=== PATIENT | female | born 1970 | race American Indian/Alaskan Native ===

== ENCOUNTER 2019-02-09 06:02 | Emergency (ER) | payer SELFPAY ==
[2019-02-09 07:00] LABS: Basophils # (Auto) 0.2 K/mm3 (0.0-0.1); Basophils % (Auto) 1.5 % (0.0-1.8); Eosinophils # (Auto) 0.2 K/mm3 (0.0-0.4); Eosinophils % (Auto) 1.4 % (0.0-4.3); Hematocrit 38.8 % (30.3-42.9); Hemoglobin 12.9 gm/dl (10.1-14.3); Lymphocytes # (Auto) 3.7 K/mm3 (1.2-5.4); Lymphocytes % (Auto) 30.1 % (13.4-35.0); Mean Corpuscular HGB Conc 33 % (30-34); Mean Corpuscular Volume 83 fl (79-97); Monocytes # (Auto) 1.1 K/mm3 (0.0-0.8); Monocytes % (Auto) 8.9 % (0.0-7.3); Platelet Count 377 K/mm3 (140-440); Red Blood Count 4.66 M/mm3 (3.65-5.03); Red Cell Distribution Width 14.3 % (13.2-15.2)
[2019-02-09 07:14] LABS: Alanine Aminotransferase 11 units/L (7-56); Albumin 4.1 g/dL (3.9-5); BUN/Creatinine Ratio 20; Blood Urea Nitrogen 12 mg/dL (7-17); Calcium 8.8 mg/dL (8.4-10.2); Hemolysis Index 28
[2019-02-09 07:33] LABS: Bilirubin,Urine NEG (Negative); Blood,Urine NEG (Negative); Color,Urine Yellow (Yellow); Mucus,Urine 2+ /HPF; Protein,Urine <15 mg/dL mg/dL (Negative); Urobilinogen,Urine < 2.0 mg/dL (<2.0)
--- NOTE | 2019-02-09 07:55 | Emergency Department Report ---
ED Female HPI - General Chief complaint: Abdominal Pain Stated complaint: PELVIC PAIN Time Seen by Provider: 02/09/19 07:54 Source: patient Mode of arrival: Ambulatory Limitations: No Limitations - History of Present Illness Initial comments: Patient reports abdominal and pelvic pain with vaginal discharge that started two days ago. MD Complaint: vaginal discharge, pelvic pain, possible STD Onset/Timin -: days(s) Location: suprapubic, RLQ Radiation: non-radiating Severity: severe Severity scale (0 -10): 7 Quality: cramping Consistency: constant Improves with: none Worsens with: none Are you Now?: No Associated Symptoms: vaginal discharge, abdominal pain. denies: vaginal bleeding, nausea/vomiting, fever/chills, headaches, loss of appetite, dysuria, hematuria, rash, seizure, shortness of breath, syncope, weakness - Related Data Sexually active: Yes Previous Rx's Medication Instructions Recorded Last Taken Type Azithromycin [Zithromax Z-TEODORO] 250 mg PO DAILY #1 pkg 01/29/15 Unknown Rx HYDROcodone/APAP 5-325 [[place] 1 each PO Q6HR PRN #20 tablet 01/29/15 Unknown Rx 5/325] Prednisone [predniSONE 10 mg 10 mg PO .TAPER #1 tab.ds.pk 01/29/15 Unknown Rx (6-Day Pack, 21 Tabs)] HYDROcodone/APAP 5-325 [[place] 1 each PO Q6HR #20 tablet 03/26/15 Unknown Rx 5/325] Ibuprofen [Motrin 600 MG tab] 600 mg PO Q8H PRN #30 tablet 03/26/15 Unknown Rx Nitrofurantoin [place]/M-Cryst 100 mg PO Q12HR #14 capsule 03/26/15 Unknown Rx [Macrobid CAP] Amoxicillin [Amoxicillin TAB] 875 mg PO BID #14 tablet 01/31/19 Unknown Rx Naproxen [Naprosyn] 500 mg PO BID #14 tablet 01/31/19 Unknown Rx metroNIDAZOLE [Flagyl] 500 mg PO Q12HR #14 tab 02/09/19 Unknown Rx Allergies Allergy/AdvReac Type Severity Reaction Status Date / Time codeine Allergy Rash Verified 01/29/15 04:57 ED Review of Systems ROS: Stated complaint: PELVIC PAIN Other details as noted in HPI Constitutional: denies: chills, fever Eyes: denies: eye pain, eye discharge, vision change ENT: denies: ear pain, throat pain Respiratory: denies: cough, shortness of breath, wheezing Cardiovascular: denies: chest pain, palpitations Endocrine: no symptoms reported Gastrointestinal: abdominal pain. denies: nausea, diarrhea Genitourinary: discharge (vaginal). denies: urgency, dysuria, frequency, hematuria Musculoskeletal: denies: back pain, joint swelling, arthralgia Skin: denies: rash, lesions Neurological: denies: headache, weakness, paresthesias Psychiatric: denies: anxiety, depression Hematological/Lymphatic: denies: easy bleeding, easy bruising ED Past Medical Hx - Past Medical History Previous Medical History?: Yes Additional medical history: sarcoidosis - Surgical History Past Surgical History?: Yes Hx Cholecystectomy: Yes Additional Surgical History: tubal ligation-1989. mylolecomty - Social History Smoking Status: Never Smoker Substance Use Type: None - Medications Home Medications: Home Medications Medication Instructions Recorded Confirmed Last Taken Type Azithromycin [Zithromax Z-TEODORO] 250 mg PO DAILY #1 pkg 01/29/15 Unknown Rx HYDROcodone/APAP 5-325 [[place] 1 each PO Q6HR PRN #20 tablet 01/29/15 Unknown Rx 5/325] Prednisone [predniSONE 10 mg 10 mg PO .TAPER #1 tab.ds.pk 01/29/15 Unknown Rx (6-Day Pack, 21 Tabs)] HYDROcodone/APAP 5-325 [[place] 1 each PO Q6HR #20 tablet 03/26/15 Unknown Rx 5/325] Ibuprofen [Motrin 600 MG tab] 600 mg PO Q8H PRN #30 tablet 03/26/15 Unknown Rx Nitrofurantoin [place]/M-Cryst 100 mg PO Q12HR #14 capsule 03/26/15 Unknown Rx [Macrobid CAP] Amoxicillin [Amoxicillin TAB] 875 mg PO BID #14 tablet 01/31/19 Unknown Rx Naproxen [Naprosyn] 500 mg PO BID #14 tablet 01/31/19 Unknown Rx metroNIDAZOLE [Flagyl] 500 mg PO Q12HR #14 tab 02/09/19 Unknown Rx ED Physical Exam - General Limitations: No Limitations General appearance: alert, in no apparent distress - Respiratory Respiratory exam: Present: normal lung sounds bilaterally. Absent: respiratory distress, wheezes, rales, rhonchi, stridor, chest wall tenderness, accessory muscle use, decreased breath sounds, prolonged expiratory - Cardiovascular Cardiovascular Exam: Present: regular rate, normal rhythm, normal heart sounds. Absent: systolic murmur, diastolic murmur, rubs, gallop - GI/Abdominal GI/Abdominal exam: Present: soft, tenderness (suprapubic and RLQ), normal bowel sounds. Absent: guarding, rebound, rigid, diminished bowel sounds, hyperactive bowel sounds, hypoactive bowel sounds, organomegaly - Speculum exam: Present: vaginal discharge (moderate creamy), cervical discharge. Absent: vaginal bleeding, foreign body, tissue, laceration Bi-manual exam: Present: normal bi-manual exam. Absent: cervical motion tendernes, adnexal mass, uterine enlargement, uterine tenderness - Extremities Exam Extremities exam: Present: normal inspection, full ROM, normal capillary refill - Back Exam Back exam: Present: normal inspection, full ROM. Absent: tenderness, CVA tenderness (R), CVA tenderness (L), muscle spasm, paraspinal tenderness, vertebral tenderness - Neurological Exam Neurological exam: Present: alert, oriented X3, CN II-XII intact, normal gait, reflexes normal - Psychiatric Psychiatric exam: Present: normal affect, normal mood - Skin Skin exam: Present: warm, dry, intact, normal color. Absent: rash ED Course Vital Signs 02/09/19 09:40 Temperature 98.3 F Pulse Rate 66 Respiratory 16 Rate Blood Pressure 132/76 [Left] O2 Sat by Pulse 100 Oximetry ED Medical Decision Making - Lab Data Result diagrams: 02/09/19 06:34 02/09/19 06:34 Lab Results 02/09/19 02/09/19 02/09/19 Range/Units 06:34 06:34 06:34 WBC 12.4 H (4.5-11.0) K/mm3 RBC 4.66 (3.65-5.03) M/mm3 Hgb 12.9 (10.1-14.3) gm/dl Hct 38.8 (30.3-42.9) % MCV 83 (79-97) fl MCH 28 (28-32) pg MCHC 33 (30-34) % RDW 14.3 (13.2-15.2) % Plt Count 377 (140-440) K/mm3 Lymph % (Auto) 30.1 (13.4-35.0) % [place] % (Auto) 8.9 H (0.0-7.3) % Eos % (Auto) 1.4 (0.0-4.3) % Baso % (Auto) 1.5 (0.0-1.8) % Lymph # 3.7 (1.2-5.4) K/mm3 [place] # 1.1 H (0.0-0.8) K/mm3 Eos # 0.2 (0.0-0.4) K/mm3 Baso # 0.2 H (0.0-0.1) K/mm3 Seg Neutrophils % 58.1 (40.0-70.0) % Seg Neutrophils # 7.2 (1.8-7.7) K/mm3 Sodium 139 (137-145) mmol/L Potassium 4.1 (3.6-5.0) mmol/L Chloride 102.2 (98-107) mmol/L Carbon Dioxide 28 (22-30) mmol/L Anion Gap 13 mmol/L BUN 12 (7-17) mg/dL Creatinine 0.6 L (0.7-1.2) mg/dL Estimated GFR > 60 ml/min BUN/Creatinine Ratio 20 % Glucose 118 H (65-100) mg/dL Calcium 8.8 (8.4-10.2) mg/dL Total Bilirubin 0.20 (0.1-1.2) mg/dL AST 13 (5-40) units/L ALT 11 (7-56) units/L Alkaline Phosphatase 72 (35-129) units/L Total Protein 7.6 (6.3-8.2) g/dL Albumin 4.1 (3.9-5) g/dL Albumin/Globulin Ratio 1.2 % HCG, Qual Negative (Negative) Urine Color (Yellow) Urine Turbidity (Clear) Urine pH (5.0-7.0) Ur Specific [place] (1.003-1.030) Urine Protein (Negative) mg/dL Urine Glucose (UA) (Negative) mg/dL Urine Ketones (Negative) mg/dL Urine Blood (Negative) Urine Nitrite (Negative) Urine Bilirubin (Negative) Urine Urobilinogen (<2.0) mg/dL Ur Leukocyte Esterase (Negative) Urine WBC (Auto) (0.0-6.0) /HPF Urine RBC (Auto) (0.0-6.0) /HPF U Epithel Cells (Auto) (0-13.0) /HPF Urine Mucus /HPF 02/09/19 Range/Units 07:22 WBC (4.5-11.0) K/mm3 RBC (3.65-5.03) M/mm3 Hgb (10.1-14.3) gm/dl Hct (30.3-42.9) % MCV (79-97) fl MCH (28-32) pg MCHC (30-34) % RDW (13.2-15.2) % Plt Count (140-440) K/mm3 Lymph % (Auto) (13.4-35.0) % [place] % (Auto) (0.0-7.3) % Eos % (Auto) (0.0-4.3) % Baso % (Auto) (0.0-1.8) % Lymph # (1.2-5.4) K/mm3 [place] # (0.0-0.8) K/mm3 Eos # (0.0-0.4) K/mm3 Baso # (0.0-0.1) K/mm3 Seg Neutrophils % (40.0-70.0) % Seg Neutrophils # (1.8-7.7) K/mm3 Sodium (137-145) mmol/L Potassium (3.6-5.0) mmol/L Chloride (98-107) mmol/L Carbon Dioxide (22-30) mmol/L Anion Gap mmol/L BUN (7-17) mg/dL Creatinine (0.7-1.2) mg/dL Estimated GFR ml/min BUN/Creatinine Ratio % Glucose (65-100) mg/dL Calcium (8.4-10.2) mg/dL Total Bilirubin (0.1-1.2) mg/dL AST (5-40) units/L ALT (7-56) units/L Alkaline Phosphatase (35-129) units/L Total Protein (6.3-8.2) g/dL Albumin (3.9-5) g/dL Albumin/Globulin Ratio % HCG, Qual (Negative) Urine Color Yellow (Yellow) Urine Turbidity Clear (Clear) Urine pH 5.0 (5.0-7.0) Ur Specific [place] 1.019 (1.003-1.030) Urine Protein <15 mg/dl (Negative) mg/dL Urine Glucose (UA) Neg (Negative) mg/dL Urine Ketones Neg (Negative) mg/dL Urine Blood Neg (Negative) Urine Nitrite Neg (Negative) Urine Bilirubin Neg (Negative) Urine Urobilinogen < 2.0 (<2.0) mg/dL Ur Leukocyte Esterase Neg (Negative) Urine WBC (Auto) 1.0 (0.0-6.0) /HPF Urine RBC (Auto) 1.0 (0.0-6.0) /HPF U Epithel Cells (Auto) 9.0 (0-13.0) /HPF Urine Mucus 2+ /HPF Microbiology 02/09/19 08:18 Wet Prep - Final Cervix > 20% clue cells seen No Trichomoniasis Temp Pulse Resp BP Pulse Ox 98.3 F 66 16 132/76 100 02/09/19 09:40 02/09/19 09:40 02/09/19 09:40 02/09/19 09:40 02/09/19 09:40 Yeast seen - Radiology Data Radiology results: image reviewed TRANSABDOMINAL PELVIC AND TRANSVAGINAL ULTRASOUND HISTORY: Pelvic pain for 5 days, myomectomy 3 years ago. COMPARISON: None. TECHNIQUE: Routine transabdominal and transvaginal pelvic ultrasound performed. Color Doppler interrogation. FINDINGS: Uterus: Normal size and echogenicity without uterine mass. The uterus is anteverted and measures 6.6 x 3.0 x 3.8 cm. Endometrium: 3.2 mm. No discrete abnormality. Right Ovary: Normal size, blood flow and appearance measuring 2.3 x 1.3 x 1.7 cm. Left Ovary: Normal size, blood flow and appearance measuring 1.8 x 1.6 x 1.6 cm. Additional findings: The cervix is normal size and contour. Several tiny echogenic foci are identified in the endocervical canal consistent with gas. IMPRESSION 1. No significant abnormality. - Medical Decision Making During the course of ED, pelvic exam, laboratory and pelvic ultrasound were ordered. The ultrasound revealed no significant abnormality. Laboratory studies showed clue cells and yeast under microscopic exam. Patient was sent home with prescription for Flagyl, instructed not to drink alcoholic beverages during medication administration, as well as 72 hours after completion of medication. She verbalized understanding - Differential Diagnosis Pelvic Pain, UTI, Bacterial Vaginosis, Yeast Infection Critical care attestation.: If time is entered above; I have spent that time in minutes in the direct care of this critically ill patient, excluding procedure time. ED Disposition Clinical Impression: Bacterial vaginosis, Yeast infection, Pelvic pain Disposition: TO HOME OR SELFCARE Is pt being admited?: No Does the pt Need Aspirin: No Condition: Stable Instructions: Bacterial Vaginosis (ED), Abdominal Pain (ED) Additional Instructions: Take medication as directed. No drinking while taking medication, including 72 hours after completion of antibiotics. Follow up with the selective referral given at discharge. Return back to the ED for worsening symptoms Prescriptions: metroNIDAZOLE [Flagyl] 500 mg PO Q12HR #14 tab Referrals: PRIMARY CAREMD [Primary Care Provider] - 3-5 Days BETSY MALLOY MD [Staff Physician] - 3-5 Days ANAMARIA SHANNON MD [Staff Physician] - 3-5 Days Forms: Work/School Release Form(ED) Time of Disposition: 09:25
--- NOTE | 2019-02-09 09:09 | Ultrasound Report ---
TRANSABDOMINAL PELVIC AND TRANSVAGINAL ULTRASOUND HISTORY: Pelvic pain for 5 days, myomectomy 3 years ago. COMPARISON: None. TECHNIQUE: Routine transabdominal and transvaginal pelvic ultrasound performed. Color Doppler interro gation. FINDINGS: Uterus: Normal size and echogenicity without uterine mass. The uterus is anteverted and measures 6.6 x 3.0 x 3.8 cm. Endometrium: 3.2 mm. No discrete abnormality. Right Ovary: Normal size, blood flow and appearance measuring 2.3 x 1.3 x 1.7 cm. Left Ovary: Normal size, blood flow and appearance measuring 1.8 x 1.6 x 1.6 cm. Additional findings: The cervix is normal size and contour. Several tiny echogenic foci are identifie d in the endocervical canal consistent with gas. IMPRESSION 1. No significant abnormality. Signer Name: David Wang Jr, MD Signed: 02/09/2019 9:04 AM Workstation Name: [id number]
[2019-02-09 09:41] VITALS: BP 132/76
== END 2019-02-09 09:41 | disposition home or self-care (01) ==
LOC: ED 06:02
DX: B37.9 Candidiasis, unspecified (principal); N76.0 Acute vaginitis; Z98.51 Tubal ligation status; Z90.49 Acquired absence of other specified parts of digestive tract; Z88.5 Allergy status to narcotic agent
CPT/HCPCS: 36415; 76830; 76856; 80053; 81001; 84703; 85025; 87210; 87591

== ENCOUNTER 2019-02-13 14:04 | Emergency (ER) | payer SELFPAY ==
[2019-02-13 14:13] VITALS: BP 129/77
--- NOTE | 2019-02-13 15:17 | Event Note ---
ED Screening Note Date of service: 02/13/19 Time: 15:13 ED Screening Note: Reports bodyache, nausea, dizziness,loss of appetite, no urinary symptoms, some coughing. Reports sinus pain. tied OTC meds This initial assessment/diagnostic orders/clinical plan/treatment(s) is/are subject to change based on patients health status, clinical progression and re- assessment by fellow clinical providers in the ED. Further treatment and workup at subsequent clinical providers discretion. Patient/guardian urged not to elope from the ED as their condition may be serious if not clinically assessed and managed. Initial orders include:
--- NOTE | 2019-02-13 15:56 | XRay Report ---
CHEST 2 VIEWS INDICATION / CLINICAL INFORMATION: cough, fever 1 month. COMPARISON: None available. FINDINGS: SUPPORT DEVICES: None. HEART / MEDIASTINUM: No significant abnormality. LUNGS / PLEURA: There is diffuse interstitial disease bilaterally. I suspect this is mild chronic int erstitial lung disease, unfortunately, I have no prior chest radiographs to confirm this. No pneumoth orax. No finding to suggest the presence of bacterial pneumonia. ADDITIONAL FINDINGS: No significant additional findings. IMPRESSION: 1. Mild interstitial lung disease bilaterally. Presumably this is chronic. No other significant findi ng. Signer Name: Sarah Patel MD Signed: 02/13/2019 3:51 PM Workstation Name: [id number]
--- NOTE | 2019-02-13 15:59 | Emergency Department Report ---
ED General Adult HPI - General Chief complaint: Upper Respiratory Infection Stated complaint: FLU LIKE SYM/DIZZY/NAUSEA Time Seen by Provider: 02/13/19 14:25 Source: patient Mode of arrival: Ambulatory Limitations: No Limitations - History of Present Illness Initial comments: flu like sx x > 1 week dx w/ possible bronchitis by PCP some coughing, primary complaint is sinus pain and intermittent dizziness along with diffuse myalgias NO fever -: Gradual, week(s) (2) Location: face Radiation: non-radiation Severity scale (0 -10): 5 Quality: aching Consistency: constant Improves with: none Worsens with: none Associated Symptoms: cough, nausea/vomiting (x 1 now resolved). denies: fever/chills, rash, shortness of breath Treatments Prior to Arrival: none - Related Data Previous Rx's Medication Instructions Recorded Last Taken Type Azithromycin [Zithromax Z-TEODORO] 250 mg PO DAILY #1 pkg 01/29/15 Unknown Rx HYDROcodone/APAP 5-325 [[place] 1 each PO Q6HR PRN #20 tablet 01/29/15 Unknown Rx 5/325] Prednisone [predniSONE 10 mg 10 mg PO .TAPER #1 tab.ds.pk 01/29/15 Unknown Rx (6-Day Pack, 21 Tabs)] HYDROcodone/APAP 5-325 [[place] 1 each PO Q6HR #20 tablet 03/26/15 Unknown Rx 5/325] Ibuprofen [Motrin 600 MG tab] 600 mg PO Q8H PRN #30 tablet 03/26/15 Unknown Rx Nitrofurantoin [place]/M-Cryst 100 mg PO Q12HR #14 capsule 03/26/15 Unknown Rx [Macrobid CAP] Amoxicillin [Amoxicillin TAB] 875 mg PO BID #14 tablet 01/31/19 Unknown Rx Naproxen [Naprosyn] 500 mg PO BID #14 tablet 01/31/19 Unknown Rx metroNIDAZOLE [Flagyl] 500 mg PO Q12HR #14 tab 02/09/19 Unknown Rx Amoxicillin/Potassium Clav 1 each PO BID #20 tablet 02/13/19 Unknown Rx [Augmentin 875-125 Tablet] predniSONE [Deltasone] 40 mg PO QDAY #10 tab 02/13/19 Unknown Rx Allergies Allergy/AdvReac Type Severity Reaction Status Date / Time codeine Allergy Rash Verified 01/29/15 04:57 ED Review of Systems ROS: Stated complaint: FLU LIKE SYM/DIZZY/NAUSEA Other details as noted in HPI Comment: All other systems reviewed and negative ED Past Medical Hx - Past Medical History Previous Medical History?: Yes Additional medical history: sarcoidosis, Bronchitis - Surgical History Past Surgical History?: Yes Hx Cholecystectomy: Yes Additional Surgical History: tubal ligation-1989. mylolecomty - Social History Smoking Status: Never Smoker Substance Use Type: Prescribed - Medications Home Medications: Home Medications Medication Instructions Recorded Confirmed Last Taken Type Azithromycin [Zithromax Z-TEODORO] 250 mg PO DAILY #1 pkg 01/29/15 Unknown Rx HYDROcodone/APAP 5-325 [[place] 1 each PO Q6HR PRN #20 tablet 01/29/15 Unknown Rx 5/325] Prednisone [predniSONE 10 mg 10 mg PO .TAPER #1 tab.ds.pk 01/29/15 Unknown Rx (6-Day Pack, 21 Tabs)] HYDROcodone/APAP 5-325 [[place] 1 each PO Q6HR #20 tablet 03/26/15 Unknown Rx 5/325] Ibuprofen [Motrin 600 MG tab] 600 mg PO Q8H PRN #30 tablet 03/26/15 Unknown Rx Nitrofurantoin [place]/M-Cryst 100 mg PO Q12HR #14 capsule 03/26/15 Unknown Rx [Macrobid CAP] Amoxicillin [Amoxicillin TAB] 875 mg PO BID #14 tablet 01/31/19 Unknown Rx Naproxen [Naprosyn] 500 mg PO BID #14 tablet 01/31/19 Unknown Rx metroNIDAZOLE [Flagyl] 500 mg PO Q12HR #14 tab 02/09/19 Unknown Rx Amoxicillin/Potassium Clav 1 each PO BID #20 tablet 02/13/19 Unknown Rx [Augmentin 875-125 Tablet] predniSONE [Deltasone] 40 mg PO QDAY #10 tab 02/13/19 Unknown Rx ED Physical Exam - General Limitations: No Limitations General appearance: alert, in no apparent distress - Head Head exam: Present: atraumatic, normocephalic - Eye Eye exam: Present: normal appearance, PERRL, EOMI - ENT ENT exam: Present: normal orophraynx, mucous membranes moist, TM's normal bilaterally, other (maxillary and frontal sinus tenderness) - Neck Neck exam: Present: normal inspection, full ROM. Absent: meningismus - Respiratory Respiratory exam: Present: normal lung sounds bilaterally. Absent: respiratory distress - Cardiovascular Cardiovascular Exam: Present: regular rate, normal rhythm. Absent: systolic murmur, diastolic murmur, rubs, gallop - GI/Abdominal GI/Abdominal exam: Present: soft, normal bowel sounds. Absent: distended, tenderness - Extremities Exam Extremities exam: Present: normal inspection - Back Exam Back exam: Present: normal inspection - Neurological Exam Neurological exam: Present: alert, oriented X3 - Psychiatric Psychiatric exam: Present: normal affect, normal mood - Skin Skin exam: Present: warm, dry, intact, normal color. Absent: rash ED Course Vital Signs 02/13/19 14:10 Temperature 98.4 F Pulse Rate 83 Respiratory 18 Rate Blood Pressure 129/77 O2 Sat by Pulse 100 Oximetry ED Medical Decision Making - Lab Data Result diagrams: 02/13/19 15:46 02/13/19 15:46 - Medical Decision Making flu like sx with worsening sinus pain well appearing with a benign exam labs ordered at triage are normal Flu - UA clear CXR chronic findings only Will recommend abx, steroids, PCP f/u - Differential Diagnosis sinusitis, viral syndrome, UTI, PNA Critical care attestation.: If time is entered above; I have spent that time in minutes in the direct care of this critically ill patient, excluding procedure time. ED Disposition Clinical Impression: Acute sinusitis Qualifiers: Sinusitis location: pansinusitis Recurrence: not specified as recurrent Qualified Code(s): J01.40 - Acute pansinusitis, unspecified Disposition: DC-01 TO HOME OR SELFCARE Is pt being admited?: No Condition: Good Instructions: Sinusitis (ED) Prescriptions: Amoxicillin/Potassium Clav [Augmentin 875-125 Tablet] 1 each PO BID #20 tablet predniSONE [Deltasone] 40 mg PO QDAY #10 tab Referrals: KYLER CASEY MD [Staff Physician] - 3-5 Days Time of Disposition: 16:25
[2019-02-13 16:03] LABS: Basophils # (Auto) 0.2 K/mm3 (0.0-0.1); Basophils % (Auto) 2.1 % (0.0-1.8); Eosinophils # (Auto) 0.2 K/mm3 (0.0-0.4); Eosinophils % (Auto) 2.5 % (0.0-4.3); Hematocrit 40.3 % (30.3-42.9); Hemoglobin 13.2 gm/dl (10.1-14.3); Lymphocytes # (Auto) 2.5 K/mm3 (1.2-5.4); Lymphocytes % (Auto) 31.4 % (13.4-35.0); Mean Corpuscular HGB Conc 33 % (30-34); Mean Corpuscular Volume 85 fl (79-97); Monocytes # (Auto) 0.8 K/mm3 (0.0-0.8); Monocytes % (Auto) 9.9 % (0.0-7.3); Platelet Count 363 K/mm3 (140-440); Red Blood Count 4.75 M/mm3 (3.65-5.03); Red Cell Distribution Width 14.5 % (13.2-15.2)
[2019-02-13 16:13] LABS: Bilirubin,Urine NEG (Negative); Blood,Urine NEG (Negative); Calcium Oxalate Crystals,Urine 2+; Color,Urine Yellow (Yellow); Mucus,Urine 2+ /HPF; Protein,Urine <15 mg/dL mg/dL (Negative); Urobilinogen,Urine < 2.0 mg/dL (<2.0)
[2019-02-13 16:14] LABS: HCG Qualitative,Urine Negative (Negative)
[2019-02-13 16:18] LABS: BUN/Creatinine Ratio 23; Blood Urea Nitrogen 14 mg/dL (7-17); Calcium 9.6 mg/dL (8.4-10.2); Hemolysis Index 18
== END 2019-02-13 17:09 | disposition home or self-care (01) ==
LOC: ED 14:04
DX: J01.00 Acute maxillary sinusitis, unspecified (principal); J01.10 Acute frontal sinusitis, unspecified; Z90.49 Acquired absence of other specified parts of digestive tract; Z98.51 Tubal ligation status; Z79.899 Other long term (current) drug therapy; Z88.6 Allergy status to analgesic agent
CPT/HCPCS: 36415; 71046; 80048; 81001; 81025; 85025; 87400; 99284

== ENCOUNTER 2019-02-20 05:58 | Emergency (ER) | payer SELFPAY ==
[2019-02-20 06:26] VITALS: BP 130/67
[2019-02-20 07:10] LABS: Basophils % (Auto) 0.3 % (0.0-1.8); Eosinophils # (Auto) 0.2 K/mm3 (0.0-0.4); Eosinophils % (Auto) 2.9 % (0.0-4.3); Hematocrit 39.2 % (30.3-42.9); Lymphocytes # (Auto) 2.1 K/mm3 (1.2-5.4); Lymphocytes % (Auto) 26.6 % (13.4-35.0); Mean Corpuscular HGB Conc 33 % (30-34); Mean Corpuscular Volume 84 fl (79-97); Monocytes # (Auto) 0.9 K/mm3 (0.0-0.8); Monocytes % (Auto) 11.1 % (0.0-7.3); Platelet Count 353 K/mm3 (140-440); Red Blood Count 4.65 M/mm3 (3.65-5.03); Red Cell Distribution Width 14.3 % (13.2-15.2)
[2019-02-20 07:37] LABS: Alanine Aminotransferase 10 units/L (7-56); Albumin 4.3 g/dL (3.9-5); BUN/Creatinine Ratio 22; Blood Urea Nitrogen 13 mg/dL (7-17); Calcium 9.3 mg/dL (8.4-10.2); Hemolysis Index 3
--- NOTE | 2019-02-20 07:53 | Emergency Department Report ---
ED Female HPI - General Chief complaint: Abdominal Pain Stated complaint: PELVIC PAIN Time Seen by Provider: 02/20/19 07:41 Source: patient Mode of arrival: Ambulatory Limitations: No Limitations - History of Present Illness Initial comments: This is a 48-year-old female here report that she is having pelvic pain 2 weeks. Patient was here on 02/09/2019 and she had a pelvic exam with wet prep and gonorrhea and chlamydia. On entering this lady is negative and her wet prep was positive for bacterial vaginosis was treated with Flagyl. Patient is insistent that she has pelvic pain that will not go away and her quality of life is affected. She denies any urinary burning and frequency or urgency. Denies any back pain or fever. Denies any shortness of breath or chest pain. Denies any vaginal discharge. She says she is on amoxicillin for upper respiratory infection. Denies any nausea or vomiting. Patient says she had tubal ligation in the past and her last menstrual period was 2 months ago. Pain is generalized to her pelvic and is 6 out of 10 and cramping and comes and goes. No alleviating or exacerbating factors. Patient last test on 02/09/2015 was negative. She did not follow discharge instruction follow up with [facility]. MD Complaint: pelvic pain Onset/Timin -: week(s) Location: suprapubic Radiation: non-radiating Severity: moderate Severity scale (0 -10): 6 Quality: cramping Consistency: intermittent Improves with: none Worsens with: none Last Menstrual Period: 12/18/18 EDC: 09/24/19 Associated Symptoms: abdominal pain - Related Data Sexually active: Yes Previous Rx's Medication Instructions Recorded Last Taken Type Azithromycin [Zithromax Z-TEODORO] 250 mg PO DAILY #1 pkg 01/29/15 Unknown Rx HYDROcodone/APAP 5-325 [[place] 1 each PO Q6HR PRN #20 tablet 01/29/15 Unknown Rx 5/325] Prednisone [predniSONE 10 mg 10 mg PO .TAPER #1 tab.ds.pk 01/29/15 Unknown Rx (6-Day Pack, 21 Tabs)] HYDROcodone/APAP 5-325 [[place] 1 each PO Q6HR #20 tablet 03/26/15 Unknown Rx 5/325] Ibuprofen [Motrin 600 MG tab] 600 mg PO Q8H PRN #30 tablet 03/26/15 Unknown Rx Nitrofurantoin Clinch/M-Cryst 100 mg PO Q12HR #14 capsule 03/26/15 Unknown Rx [Macrobid CAP] Amoxicillin [Amoxicillin TAB] 875 mg PO BID #14 tablet 01/31/19 Unknown Rx metroNIDAZOLE [Flagyl] 500 mg PO Q12HR #14 tab 02/09/19 Unknown Rx Amoxicillin/Potassium Clav 1 each PO BID #20 tablet 02/13/19 Unknown Rx [Augmentin 875-125 Tablet] predniSONE [Deltasone] 40 mg PO QDAY #10 tab 02/13/19 Unknown Rx Naproxen [Naprosyn TAB] 500 mg PO BID PRN #12 tablet 02/20/19 Unknown Rx Allergies Allergy/AdvReac Type Severity Reaction Status Date / Time codeine Allergy Rash Verified 01/29/15 04:57 ED Review of Systems ROS: Stated complaint: PELVIC PAIN Other details as noted in HPI Constitutional: denies: chills, fever ENT: denies: ear pain, throat pain, congestion Respiratory: denies: cough, shortness of breath, SOB with exertion, SOB at rest, wheezing Cardiovascular: denies: chest pain, palpitations, dyspnea on exertion, edema, syncope Gastrointestinal: abdominal pain. denies: nausea, vomiting, diarrhea, constipation, hematemesis, melena, hematochezia Genitourinary: denies: urgency, dysuria, frequency, hematuria, discharge, abnormal menses, dyspareunia Musculoskeletal: denies: back pain, joint swelling, arthralgia, myalgia Skin: denies: rash, lesions Neurological: denies: headache, weakness, numbness, paresthesias, confusion ED Past Medical Hx - Past Medical History Previous Medical History?: Yes Hx Hypertension: Yes Additional medical history: sarcoidosis, Bronchitis - Surgical History Past Surgical History?: Yes Hx Cholecystectomy: Yes Additional Surgical History: tubal ligation-1989. mylolecomty - Family History Family history: hypertension - Social History Smoking Status: Never Smoker Substance Use Type: None - Medications Home Medications: Home Medications Medication Instructions Recorded Confirmed Last Taken Type Azithromycin [Zithromax Z-TEODORO] 250 mg PO DAILY #1 pkg 01/29/15 Unknown Rx HYDROcodone/APAP 5-325 [[place] 1 each PO Q6HR PRN #20 tablet 01/29/15 Unknown Rx 5/325] Prednisone [predniSONE 10 mg 10 mg PO .TAPER #1 tab.ds.pk 01/29/15 Unknown Rx (6-Day Pack, 21 Tabs)] HYDROcodone/APAP 5-325 [[place] 1 each PO Q6HR #20 tablet 03/26/15 Unknown Rx 5/325] Ibuprofen [Motrin 600 MG tab] 600 mg PO Q8H PRN #30 tablet 03/26/15 Unknown Rx Nitrofurantoin Clinch/M-Cryst 100 mg PO Q12HR #14 capsule 03/26/15 Unknown Rx [Macrobid CAP] Amoxicillin [Amoxicillin TAB] 875 mg PO BID #14 tablet 01/31/19 Unknown Rx metroNIDAZOLE [Flagyl] 500 mg PO Q12HR #14 tab 02/09/19 Unknown Rx Amoxicillin/Potassium Clav 1 each PO BID #20 tablet 02/13/19 Unknown Rx [Augmentin 875-125 Tablet] predniSONE [Deltasone] 40 mg PO QDAY #10 tab 02/13/19 Unknown Rx Naproxen [Naprosyn TAB] 500 mg PO BID PRN #12 tablet 02/20/19 Unknown Rx ED Physical Exam - General Limitations: No Limitations General appearance: alert, in no apparent distress - Head Head exam: Present: atraumatic, normocephalic - Eye Eye exam: Present: normal appearance, PERRL, EOMI Pupils: Present: normal accommodation - ENT ENT exam: Present: normal exam, normal orophraynx, mucous membranes moist - Neck Neck exam: Present: normal inspection, full ROM. Absent: tenderness, lymphadenopathy - Respiratory Respiratory exam: Present: normal lung sounds bilaterally. Absent: respiratory distress, chest wall tenderness - Cardiovascular Cardiovascular Exam: Present: regular rate, normal rhythm, normal heart sounds - GI/Abdominal GI/Abdominal exam: Present: soft, tenderness (mild tenderness to mid pelvic area with palpation. No guarding or rebound), normal bowel sounds. Absent: distended, guarding, rebound, rigid, organomegaly, mass, bruit - External exam: Present: normal external exam. Absent: erythema, swelling, lesions, lacerations, ecchymosis, bleeding Speculum exam: Present: normal speculum exam. Absent: erythema, vaginal discharge, cervical discharge, vaginal bleeding, foreign body, tissue, laceration Bi-manual exam: Present: normal bi-manual exam. Absent: cervical motion tendernes, adnexal tenderness, adnexal mass, uterine enlargement, uterine tenderness - Extremities Exam Extremities exam: Present: normal inspection, full ROM, normal capillary refill. Absent: tenderness, pedal edema, joint swelling - Back Exam Back exam: Present: normal inspection, full ROM. Absent: tenderness, CVA tenderness (R), CVA tenderness (L), muscle spasm, paraspinal tenderness, vertebral tenderness, rash noted - Neurological Exam Neurological exam: Present: alert, oriented X3, normal gait - Psychiatric Psychiatric exam: Present: normal affect, normal mood - Skin Skin exam: Present: warm, dry, intact, normal color. Absent: rash ED Course Vital Signs 02/20/19 06:23 Temperature 98.1 F Pulse Rate 86 Respiratory 14 Rate Blood Pressure 130/67 O2 Sat by Pulse 100 Oximetry - Reevaluation(s) Reevaluation #1: 02/20/19 09:21 Patient given Toradol 60 mg IM in emergency room. All her lab work are stable. Awaiting urine . ED Medical Decision Making - Lab Data Result diagrams: 02/20/19 06:57 02/20/19 06:57 Lab Results 02/20/19 02/20/19 02/20/19 Range/Units 06:57 06:57 07:20 WBC 7.8 (4.5-11.0) K/mm3 RBC 4.65 (3.65-5.03) M/mm3 Hgb 13.0 (10.1-14.3) gm/dl Hct 39.2 (30.3-42.9) % MCV 84 (79-97) fl MCH 28 (28-32) pg MCHC 33 (30-34) % RDW 14.3 (13.2-15.2) % Plt Count 353 (140-440) K/mm3 Lymph % (Auto) 26.6 (13.4-35.0) % Clinch % (Auto) 11.1 H (0.0-7.3) % Eos % (Auto) 2.9 (0.0-4.3) % Baso % (Auto) 0.3 (0.0-1.8) % Lymph # 2.1 (1.2-5.4) K/mm3 Clinch # 0.9 H (0.0-0.8) K/mm3 Eos # 0.2 (0.0-0.4) K/mm3 Baso # 0.0 (0.0-0.1) K/mm3 Seg Neutrophils % 59.1 (40.0-70.0) % Seg Neutrophils # 4.6 (1.8-7.7) K/mm3 Sodium 143 (137-145) mmol/L Potassium 3.7 (3.6-5.0) mmol/L Chloride 103.9 (98-107) mmol/L Carbon Dioxide 25 (22-30) mmol/L Anion Gap 18 mmol/L BUN 13 (7-17) mg/dL Creatinine 0.6 L (0.7-1.2) mg/dL Estimated GFR > 60 ml/min BUN/Creatinine Ratio 22 % Glucose 99 (65-100) mg/dL Calcium 9.3 (8.4-10.2) mg/dL Total Bilirubin 0.20 (0.1-1.2) mg/dL AST 12 (5-40) units/L ALT 10 (7-56) units/L Alkaline Phosphatase 76 (35-129) units/L Total Protein 7.9 (6.3-8.2) g/dL Albumin 4.3 (3.9-5) g/dL Albumin/Globulin Ratio 1.2 % Lipase 23 (13-60) units/L Urine Color Yellow (Yellow) Urine Turbidity Clear (Clear) Urine pH 5.0 (5.0-7.0) Ur Specific [place] 1.018 (1.003-1.030) Urine Protein <15 mg/dl (Negative) mg/dL Urine Glucose (UA) Neg (Negative) mg/dL Urine Ketones Neg (Negative) mg/dL Urine Blood Sm (Negative) Urine Nitrite Neg (Negative) Urine Bilirubin Neg (Negative) Urine Urobilinogen < 2.0 (<2.0) mg/dL Ur Leukocyte Esterase Neg (Negative) Urine WBC (Auto) 1.0 (0.0-6.0) /HPF Urine RBC (Auto) 2.0 (0.0-6.0) /HPF U Epithel Cells (Auto) 1.0 (0-13.0) /HPF Hyaline Casts 1 /LPF Urine Mucus Few /HPF Urine HCG, Qual (Negative) 02/20/19 Range/Units Unknown WBC (4.5-11.0) K/mm3 RBC (3.65-5.03) M/mm3 Hgb (10.1-14.3) gm/dl Hct (30.3-42.9) % MCV (79-97) fl MCH (28-32) pg MCHC (30-34) % RDW (13.2-15.2) % Plt Count (140-440) K/mm3 Lymph % (Auto) (13.4-35.0) % Clinch % (Auto) (0.0-7.3) % Eos % (Auto) (0.0-4.3) % Baso % (Auto) (0.0-1.8) % Lymph # (1.2-5.4) K/mm3 Clinch # (0.0-0.8) K/mm3 Eos # (0.0-0.4) K/mm3 Baso # (0.0-0.1) K/mm3 Seg Neutrophils % (40.0-70.0) % Seg Neutrophils # (1.8-7.7) K/mm3 Sodium (137-145) mmol/L Potassium (3.6-5.0) mmol/L Chloride (98-107) mmol/L Carbon Dioxide (22-30) mmol/L Anion Gap mmol/L BUN (7-17) mg/dL Creatinine (0.7-1.2) mg/dL Estimated GFR ml/min BUN/Creatinine Ratio % Glucose (65-100) mg/dL Calcium (8.4-10.2) mg/dL Total Bilirubin (0.1-1.2) mg/dL AST (5-40) units/L ALT (7-56) units/L Alkaline Phosphatase (35-129) units/L Total Protein (6.3-8.2) g/dL Albumin (3.9-5) g/dL Albumin/Globulin Ratio % Lipase (13-60) units/L Urine Color (Yellow) Urine Turbidity (Clear) Urine pH (5.0-7.0) Ur Specific [place] (1.003-1.030) Urine Protein (Negative) mg/dL Urine Glucose (UA) (Negative) mg/dL Urine Ketones (Negative) mg/dL Urine Blood (Negative) Urine Nitrite (Negative) Urine Bilirubin (Negative) Urine Urobilinogen (<2.0) mg/dL Ur Leukocyte Esterase (Negative) Urine WBC (Auto) (0.0-6.0) /HPF Urine RBC (Auto) (0.0-6.0) /HPF U Epithel Cells (Auto) (0-13.0) /HPF Hyaline Casts /LPF Urine Mucus /HPF Urine HCG, Qual Negative (Negative) - Radiology Data Radiology results: report reviewed Patient had transvaginal and transabdominal pelvic ultrasound on 02/09/2019 which shows no significant abnormalities. Please see results below. This was dictated by radiologist uterus is normal, endometrium is normal, and bilateral ovaries are normal Findings [facility] [address] [place] [address] Ultrasound Report Signed Patient: RYLIE GEORGES MR#: [id number] 1 : 1970 Acct:[id number] Age/Sex: 48 / F ADM Date: 02/09/19 Loc: ED Attending Dr: Ordering Physician: DEB SALOMON NP Date of Service: 02/09/19 Procedure(s): US pelvic complete Accession Number(s): [id number] cc: DEB SALOMON NP TRANSABDOMINAL PELVIC AND TRANSVAGINAL ULTRASOUND HISTORY: Pelvic pain for 5 days, myomectomy 3 years ago. COMPARISON: None. TECHNIQUE: Routine transabdominal and transvaginal pelvic ultrasound performed. Color Doppler interrogation. FINDINGS: Uterus: Normal size and echogenicity without uterine mass. The uterus is anteverted and measures 6.6 x 3.0 x 3.8 cm. Endometrium: 3.2 mm. No discrete abnormality. Right Ovary: Normal size, blood flow and appearance measuring 2.3 x 1.3 x 1.7 cm. Left Ovary: Normal size, blood flow and appearance measuring 1.8 x 1.6 x 1.6 cm. Additional findings: The cervix is normal size and contour. Several tiny echogenic foci are identified in the endocervical canal consistent with gas. IMPRESSION 1. No significant abnormality. Signer Name: David Wang Jr, MD Signed: 02/09/2019 9:04 AM Workstation Name: [id number] Transcribed By: TTR Dictated By: DVAID WANG JR, MD Electronically Authenticated By: DAVID WANG JR, MD Signed Date/Time: 02/09/19903 DD/ 0 TD/TT: - Medical Decision Making This is a 48-year-old female here for pelvic pain for 2 weeks. She had been seen by provider in 02/09/2019 and had wet prep and gonorrhea and chlamydia and was found to have BV patient was treated for 7 days. Pelvic exam today shows normal exam. She has mild pelvic tenderness. Her CBC and chemistry was normal. Urinalysis is stable except she has small amount of blood in her urine. test is negative. I discussed the patient that she needs to follow up with [facility] as previously discussed by review is provider. I discussed with her she would probably need to have a Pap smear and we do not do this procedure in the emergency room. I will schedule patient with on-call [facility] which is Dr. Salaazr and patient agree cysts follow-up in 2-3 days. She was given Toradol in emergency room which helped her pain. Her vital signs are stable she is afebrile. Patient will be discharged home in naproxen. Discharged home in stable condition. Critical care attestation.: If time is entered above; I have spent that time in minutes in the direct care of this critically ill patient, excluding procedure time. ED Disposition Clinical Impression: Pelvic pain Disposition: DC-01 TO HOME OR SELFCARE Is pt being admited?: No Does the pt Need Aspirin: No Condition: Stable Instructions: Abdominal Pain (ED) Additional Instructions: Please follow-up with [facility] as instructed and if you condition worsens to return to the emergency room. Increase your fluid intake. naproxen for pelvic pain as prescribed Referrals: UNIQUE SALAZAR MD [Staff Physician] - 2-3 Days Forms: Work/School Release Form(ED)
[2019-02-20 08:08] LABS: Bilirubin,Urine NEG (Negative); Blood,Urine SM (Negative); Color,Urine Yellow (Yellow); Hyaline Casts,Urine 1 /LPF; Mucus,Urine FEW /HPF; Protein,Urine <15 mg/dL mg/dL (Negative); Urobilinogen,Urine < 2.0 mg/dL (<2.0)
[2019-02-20] MEDS ORDERED: TORADOL IM ONE (09:11)
[2019-02-20 09:19] LABS: HCG Qualitative,Urine Negative (Negative)
== END 2019-02-20 09:41 | disposition home or self-care (01) ==
LOC: ED 05:58
DX: R10.2 Pelvic and perineal pain (principal); I10 Essential (primary) hypertension; Z79.899 Other long term (current) drug therapy; Z79.1 Long term (current) use of non-steroidal anti-inflammatories (NSAID); Z88.5 Allergy status to narcotic agent; Z90.49 Acquired absence of other specified parts of digestive tract; Z98.51 Tubal ligation status
CPT/HCPCS: 36415; 80053; 81001; 81025; 83690; 85025; 96372; 99284; J1885

== ENCOUNTER 2019-03-31 17:33 | Emergency (ER) | payer SELFPAY ==
[2019-03-31 18:22] VITALS: BP 147/86
[2019-03-31] MEDS ORDERED: ASPIRIN 325 MG TAB PO ONE (18:22)
== END 2019-03-31 20:10 | disposition left against medical advice (07) ==
LOC: ED 17:33
DX: R07.89 Other chest pain (principal); Z53.21 Procedure and treatment not carried out due to patient leaving prior to being seen by health care provider
CPT/HCPCS: 93005; 93010

== ENCOUNTER 2019-07-04 13:59 | Emergency (ER) | payer SELFPAY | END 2019-07-04 20:10 | disposition left against medical advice (07) | LOC: ED 13:59 | DX: M79.604 Pain in right leg (principal); Z53.21 Procedure and treatment not carried out due to patient leaving prior to being seen by health care provider ==

== ENCOUNTER 2019-07-13 14:00 | Emergency (ER) | payer SELFPAY ==
--- NOTE | 2019-07-13 14:22 | Emergency Department Report ---
Blank Doc - Documentation Documentation: 49-year-odl female that presents with right calf pain. denies any injuries or trauma. Stated has been getting worse. This initial assessment/diagnostic orders/clinical plan/treatment(s) is/are subject to change based on patient's health status, clinical progression and re-assessment by fellow clinical providers in the ED. Further treatment and workup at subsequent clinical providers discretion. Patient/guardians urged not to elope from the ED as their condition may be serious if not clinically assessed and managed. Initial orders include: 1- Patient sent to [facility] for further evaluation and treatment 2- Doppler US
--- NOTE | 2019-07-13 15:25 | Emergency Department Report ---
ED Lower Extremity HPI - General Chief Complaint: Extremity Problem,Nontraumatic Stated Complaint: RT LEG PAIN Time Seen by Provider: 07/13/19 14:20 Source: patient Mode of arrival: Ambulatory Limitations: No Limitations - History of Present Illness Initial Comments: Patient is a 49-year-old -[place] female who comes to the ER today limping with right leg pain for 5 weeks. She has no known trauma or injury. 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 She states that she will work 1 week on 1 week off. Patient has not seen a primary care for this problem. Ultrasound is ordered by the [facility] and the front was noted negative. - Related Data Previous Rx's Medication Instructions Recorded Last Taken Type Naproxen [Naprosyn] 500 mg PO BID PRN #20 tablet 07/13/19 Unknown Rx predniSONE [Deltasone] 20 mg PO DAILY #5 tablet 07/13/19 Unknown Rx Allergies Allergy/AdvReac Type Severity Reaction Status Date / Time codeine Allergy Rash Verified 01/29/15 04:57 ED Review of Systems ROS: Stated complaint: RT LEG PAIN Other details as noted in HPI Comment: All other systems reviewed and negative ED Past Medical Hx - Past Medical History Hx Hypertension: Yes Additional medical history: sarcoidosis, Bronchitis - Surgical History Hx Cholecystectomy: Yes Additional Surgical History: tubal ligation-1989. mylolecomty - Family History Family history: no significant - Social History Smoking Status: Never Smoker Substance Use Type: None - Medications Home Medications: Home Medications Medication Instructions Recorded Confirmed Last Taken Type Naproxen [Naprosyn] 500 mg PO BID PRN #20 tablet 07/13/19 Unknown Rx predniSONE [Deltasone] 20 mg PO DAILY #5 tablet 07/13/19 Unknown Rx ED Physical Exam - General Limitations: No Limitations General appearance: alert, in no apparent distress - Head Head exam: Present: atraumatic, normocephalic - Eye Eye exam: Present: normal appearance - ENT ENT exam: Present: mucous membranes moist - Neck Neck exam: Present: normal inspection - Respiratory Respiratory exam: Present: normal lung sounds bilaterally. Absent: respiratory distress - Cardiovascular Cardiovascular Exam: Present: regular rate, normal rhythm. Absent: systolic murmur, diastolic murmur, rubs, gallop - GI/Abdominal GI/Abdominal exam: Present: soft, normal bowel sounds - Extremities Exam Extremities exam: Present: normal inspection - Expanded Lower Extremity Exam Right Hip exam: Present: normal inspection Upper Leg exam: Present: normal inspection Knee exam: Present: normal inspection, full ROM. Absent: tenderness, swelling, abrasion, laceration, ecchymosis, deformity, crepidus Lower Leg exam: Present: normal inspection Ankle exam: Present: normal inspection Foot/Toe exam: Present: normal inspection Neuro vascular tendon exam: Present: no vascular compromise. Absent: pulse deficit, abnormal cap refill, motor deficit, sensory deficit, tendon deficit, extremity cold to touch, pallor, abnormal 2-point discrimination, decreased fine/light touch, foot drop, peroneal nerve deficit, significant pain with passive ROM of distal joint Gait: Positive: observed and limited by pain - Back Exam Back exam: Present: normal inspection - Neurological Exam Neurological exam: Present: alert, oriented X3 - Psychiatric Psychiatric exam: Present: normal affect, normal mood - Skin Skin exam: Present: warm, dry, intact, normal color. Absent: rash ED Course - Reevaluation(s) Reevaluation #1: 07/13/19 15:43 Negative straight leg raise ED Lower Extremity MDM - Radiology Data Radiology results: report reviewed, image reviewed - Medical Decision Making Ultrasound noted to be negative. Patient denies chest pain, shortness of breath or tachycardia. Heart rate 80 on exam. No known trauma No effusion of the knee Patient points to the medial aspect of her knee when she is asked where the pain is. Negative straight leg raise Immobilizer and crutches given patient's limited gait with a limp. I have explained to her that a short trial of immobilization to alleviate the pain and then orthopedic follow-up is indicated. I also discussed the risk of immobilization including blood clot. She verbalizes understanding. Medicated for pain in the ER. Discharged home with Ortho follow-up. - Differential Diagnosis Rule out DVT Critical care attestation.: If time is entered above; I have spent that time in minutes in the direct care of this critically ill patient, excluding procedure time. ED Disposition Clinical Impression: Knee pain Disposition: DC-01 TO HOME OR SELFCARE Is pt being admited?: No Does the pt Need Aspirin: No Condition: Stable Instructions: Knee Pain (ED) Additional Instructions: alternate ice/warm compresses meds as ordered for pain do not take motrin with naprosyn immobilizer and crutches to take weight off knee FOLLOW UP WITH DR DE LA VEGA referral below ultrasound neg for blood clot Prescriptions: predniSONE [Deltasone] 20 mg PO DAILY #5 tablet Naproxen [Naprosyn] 500 mg PO BID PRN #20 tablet PRN Reason: Pain Referrals: JOSEF DE LA VEGA MD [Staff Physician] - 3-5 Days Time of Disposition: 15:25
[2019-07-13] MEDS ORDERED: KETOROLAC 60 MG/2 ML INJ IM ONE (15:26)
--- NOTE | 2019-07-13 15:39 | Vascular Lab Report ---
DUPLEX DOPPLER LOWER EXTREMITY VEINS, RIGHT INDICATION: right leg pain. TECHNIQUE: Duplex doppler imaging was performed through the veins of the right lower extremity using venous comp ression and other maneuvers. COMPARISON: No relevant prior imaging study available. FINDINGS: Right Common femoral vein: Negative. Right Superficial femoral vein: Negative. Right Popliteal vein: Negative. Right Calf veins: Negative. Additional findings: None.. IMPRESSION: 1. No sonographic evidence for DVT in the right lower extremity. Signer Name: Pino Schofield MD Signed: 07/13/2019 3:34 PM Workstation Name: [id number]
== END 2019-07-13 16:03 | disposition home or self-care (01) ==
LOC: ED 14:00
DX: M25.561 Pain in right knee (principal); I10 Essential (primary) hypertension; D86.9 Sarcoidosis, unspecified; J40 Bronchitis, not specified as acute or chronic; Z98.890 Other specified postprocedural states; Z90.49 Acquired absence of other specified parts of digestive tract; Z98.51 Tubal ligation status; Z79.899 Other long term (current) drug therapy; Z88.8 Allergy status to other drugs, medicaments and biological substances
CPT/HCPCS: 29505; 93971; 96372; 99283; J1885